=== PATIENT | male | born 1955 | race Caucasian/White ===

== ENCOUNTER 2018-12-06 09:24 | Inpatient (IN) | payer MEDICARE, OTHER ==
[~2018-12-06] VITALS: Ht 177.8 cm; Wt 91.7 kg
[2018-12-06 10:14] LABS: BASO % 0.4 % (0.0-1.0); EOS # 0.2 10^3/uL (0.0-0.50); HEMATOCRIT 43.4 % (42.0-52.0); HEMOGLOBIN 14.7 g/dl (13.5-17.5); LYMPH # 0.9 10^3/uL (1.5-4.5); LYMPH % 18.5 % (24.0-44.0); MEAN CORPUSCULAR HEMOGLOBIN 29.9 pg (27.0-33.0); MEAN CORPUSCULAR HGB CONC 33.9 g/dl (32.0-36.5); MEAN CORPUSCULAR VOLUME 88.2 fl (80.0-96.0); MONO # 0.4 10^3/uL (0.0-0.8); MONO % 8.3 % (0.0-5.0); NEUTROPHILS # 3.2 10^3/uL (1.8-7.7); NEUTROPHILS % 67.4 % (36.0-66.0); PLATELET COUNT, AUTOMATED 189 10^3/uL (150-450); RED BLOOD COUNT 4.92 10^6/uL (4.30-6.10); WHITE BLOOD COUNT 4.8 10^3/uL (4.0-10.0)
[2018-12-06 10:25] LABS: INR 1.03; PROTHROMBIN TIME 13.2 SECONDS (11.8-14.0)
[2018-12-06 10:26] LABS: PARTIAL THROMBOPLASTIN TIME 32.6 SECONDS (25.0-38.4)
--- NOTE | 2018-12-06 10:39 | REP ---
CT BRAIN WITHOUT CONTRAST: CT brain performed without IV contrast. There are no prior studies. There is mild atrophy. There is no midline shift or mass effect. There are minor periventricular small vessel ischemic changes. There is no acute intracranial hemorrhage or extra-axial fluid collection. There is an oval density in the posterior aspect of the right sphenoid sinus 1.8 cm in diameter representing a retention cyst or polyp. IMPRESSION: No acute intracranial hemorrhage. Mild diffuse atrophy. Retention cyst or polyp right sphenoid sinus. Electronically Signed by Arjun Liu MD 12/07/2018 01:00 P
--- NOTE | 2018-12-06 10:45 | REP ---
PORTABLE CHEST X-RAY: Single AP view. HISTORY: CVA. FINDINGS: The lungs are well inflated and clear. The pleural angles are sharp. Cardiomediastinal silhouette is unremarkable. EKG monitoring electrodes are seen. No significant bony abnormality is seen. Pulmonary vasculature is not increased. IMPRESSION: No active disease. Electronically Signed by Brooks Louis MD 12/06/2018 02:03 P
[2018-12-06 11:00] LABS: BLOOD UREA NITROGEN 9 MG/DL (7-18); CALCIUM LEVEL 8.4 MG/DL (8.8-10.2); CARBON DIOXIDE LEVEL 26 MEQ/L (21-32); CHLORIDE LEVEL 107 MEQ/L (98-107); CK-MB VALUE MASS < 1.0 NG/ML (<3.6); CPK CREATINE PHOSPHOKINASE 100 U/L (39-308); CREATININE FOR GFR 1.05 MG/DL (0.70-1.30); GLOMERULAR FILTRATION RATE > 60.0 (>49); GLUCOSE, FASTING 126 MG/DL (70-100); POTASSIUM SERUM 4.2 MEQ/L (3.5-5.1); SODIUM LEVEL 140 MEQ/L (136-145); TROPONIN I < 0.02 NG/ML (< 0.10)
[2018-12-06] MEDS ORDERED: CARV3.12 PO (11:19)
[2018-12-06] MEDS ORDERED: C 50TAB PO (11:19)
[2018-12-06] MEDS ORDERED: FISH1000 PO (11:19)
[2018-12-06] MEDS ORDERED: VITMTA PO (11:19)
[2018-12-06] MEDS ORDERED: ASPI81TA85 PO (11:19)
--- NOTE | 2018-12-06 11:59 | HPEPDOC ---
[facility] Medical History & Physical Date of Admission Dec 06, 2018 Date of Service: Dec 06, 2018 History and Physical CHIEF COMPLAINT: Difficulty concentrating, right facial numbness HISTORY OF PRESENT ILLNESS: 63 yo male with PMHx of thoracic aortic aneurysm, hypertension, dyslipidemia, woke up this morning with complaints of difficulty concentrating, and right facial numbness. Symptoms persisted, with some difficulty performing simple tasks (texting, pouring cereal). In the ER his symptoms continued, however his facial numbness may be improving. Denies any other medical complaints. Denies shortness of breath, chest pain, headaches, changes in vision, abdominal pain, N/V/D. PAST MEDICAL HISTORY: 1. thoracic aortic aneurysm without rupture 2. HTN 3. 1st degree AV block 4. hyperlipidemia 5. DENA 6. obesity REVIEW OF SYSTEMS: Negative except as per HPI. HOME MEDICATIONS: Please see below. PHYSICAL EXAMINATION: VITAL SIGNS: See below GENERAL APPEARANCE: Lying comfortably in bed, NAD HEENT: NC/AT, EOMI, PERRL CARDIOVASCULAR: +S1S2, RRR LUNGS: CTA B/L ABDOMEN: soft, NT, +BS NEUROLOGICAL: sensory deficit right face otherwise sensation intact throughout PSYCHIATRIC: AAOx3 LABORATORY DATA: See below. MICROBIOLOGY: Please see below. ASSESSMENT: 63 yo male for signs/symptoms of CVA #r/o CVA - MRI pending - neuro c/s pending - echo pending - carotid US pending - check lipid profile in am - PT/OT Vital Signs Vital Signs Date Time Temp Pulse Resp B/P (MAP) Pulse Ox O2 Delivery O2 Flow Rate FiO2 12/06/18 10:31 12/06/18 09:25 97.0 53 18 96 Room Air Laboratory Data Labs 24H Laboratory Tests 2 12/06/18 10:00: Immature Granulocyte % (Auto) 0.4, White Blood Count 4.8, Red Blood Count 4.92, Hemoglobin 14.7, Hematocrit 43.4, Mean Corpuscular Volume 88.2, Mean Corpuscular Hemoglobin 29.9, Mean Corpuscular Hemoglobin Concent 33.9, Red Cell Distribution Width 13.0, Platelet Count 189, Neutrophils (%) (Auto) 67.4H, Lymphocytes (%) (Auto) 18.5L, Monocytes (%) (Auto) 8.3H, Eosinophils (%) (Auto) 5.0H, Basophils (%) (Auto) 0.4, Neutrophils # (Auto) 3.2, Lymphocytes # (Auto) 0.9L, Monocytes # (Auto) 0.4, Eosinophils # (Auto) 0.2, Basophils # (Auto) 0.0, Nucleated Red Blood Cells % (auto) 0.0, Prothrombin Time 13.2, Prothromb Time International Ratio 1.03, Activated Partial Thromboplast Time 32.6, Anion Gap 7L, Glomerular Filtration Rate > 60.0, Blood Urea Nitrogen 9, Creatinine 1.05, Sodium Level 140, Potassium Level 4.2, Chloride Level 107, Carbon Dioxide Level 26, Calcium Level 8.4L, Total Creatine Kinase 100, Creatine Kinase MB < 1.0, Creatine Kinase MB Relative Index 1.00, Troponin I < 0.02 12/06/18 10:25: Bedside Glucose (Misc Panel) 120H CBC/BMP Laboratory Tests 12/06/18 10:00 Red Blood Count 4.92, Mean Corpuscular Volume 88.2, Mean Corpuscular Hemoglobin 29.9, Mean Corpuscular Hemoglobin Concent 33.9, Red Cell Distribution Width 13.0, Neutrophils (%) (Auto) 67.4 H, Lymphocytes (%) (Auto) 18.5 L, Monocytes (%) (Auto) 8.3 H, Eosinophils (%) (Auto) 5.0 H, Basophils (%) (Auto) 0.4, Neutrophils # (Auto) 3.2, Lymphocytes # (Auto) 0.9 L, Monocytes # (Auto) 0.4, Eosinophils # (Auto) 0.2, Basophils # (Auto) 0.0, Calcium Level 8.4 L, Total Creatine Kinase 100 Home Medications Scheduled Ascorbic Acid (Vitamin C) 500 Mg Tablet, 500 MG PO DAILY Aspirin (Aspir 81) 81 Mg Tablet.dr, 81 MG PO DAILY Atorvastatin Calcium (Atorvastatin Calcium) 20 Mg Tablet, 80 MG PO QHS Carvedilol (Carvedilol) 3.125 Mg Tablet, 3.125 MG PO BID Clopidogrel Bisulfate (Clopidogrel) 75 Mg Tablet, 75 MG PO DAILY Multivitamins (Thera M Plus Tablet) 1 Each Tablet, 1 TAB PO DAILY [place]-3 Fatty Acids/Fish Oil (Fish Oil 1,000 mg Capsule) 1 Each Capsule, 1,000 MG PO DAILY Allergies Coded Allergies: No Known Allergies (Unverified , 12/06/18) A-FIB/CHADSVASC A-FIB History Current/History of A-Fib/PAF?: No Current PO Anticoag Therapy: No JIMMIE VALENTIN MD Dec 06, 2018 11:59
--- NOTE | 2018-12-06 14:31 | REP ---
MR angiography the brain without contrast: History: Facial sensation loss. Question CVA. Technique: 3-D kory-is-xuelod MR angiography of the brain is acquired in the usual fashion and maximal intensity projection images were generated in rotational format about the vertical and horizontal axes. In addition, source axial T1-weighted images are viewed in cine mode. MR angiographic findings: The distal vertebral arteries are patent and co-dominant. Basilar artery is a little tortuous but widely patent. The posterior cerebral and superior cerebellar vessels are normal and symmetric. There is a persistent origin of the right posterior cerebral artery as a common normal variant. The distal internal carotid arteries are unremarkable. Anterior and middle cerebral arteries appear intact. There is no visible lovelace aneurysm or arteriovenous malformation. Impression: Unremarkable MR angiography the brain. Electronically Signed by Brooks Louis MD 12/06/2018 02:22 P
--- NOTE | 2018-12-06 14:52 | REP ---
MRI BRAIN WITHOUT CONTRAST: HISTORY: Loss of facial sensation. Rule out CVA. Comparison CT study is from this date. TECHNIQUE: Axial and sagittal imaging planes are utilized for T1- and T2-weighted scans. Sequences include spin echo, fast spin echo, FLAIR, and diffusion weighted sequences. MRI FINDINGS: No bony calvarial lesion is seen. Craniocervical junction and upper cervical cord are normal in appearance. There is a mucous retention cyst in the sphenoid sinus. No intraorbital abnormality is seen. There is mild generalized volume loss. Periventricular white matter hyperintensity is seen in the minimal pattern consistent with small vessel atherosclerotic change. There is a tiny 3 mm focus of low T1 high T2 signal intensity in the left cerebral peduncle consistent with an old lacunar infarct. There is no evidence of restricted diffusion here. Diffusion weighted scans however to demonstrate three areas of restricted diffusion on the left involving the left posterior frontal lobe, the left parietal lobe, and the left anterior frontal lobe. The posterior frontal lobe lesion is subcortical. The other two lesions involve the cerebral cortex. The largest is in the left parietal lobe. These are compatible with the areas of acute ischemia. Subtle T2 hyperintensity is visible in the white matter lesion but not yet in the cortical lesions. There is no evidence of intracranial hemorrhage. Diffusion weighted scans are otherwise unremarkable. No mass lesion is seen. IMPRESSION: There are multifocal areas of restricted diffusion in the left cerebral hemisphere in the distribution of the left middle cerebral artery. Three small areas are observed, the largest of which is in the left parietal lobe. These areas are consistent with acute ischemia. There is no evidence of hemorrhage. Electronically Signed by Brooks Louis MD 12/06/2018 05:12 P
--- NOTE | 2018-12-06 15:48 | REP ---
Duplex carotid sonography: History: CVA. Sonographic findings: Antegrade flow is observed in both vertebral arteries. Irregular cardiac rhythm is observed on Doppler tracings. Right carotid: The right common carotid artery is unremarkable on two-dimensional scanning. There is mild mixed plaquing in the bulb and proximal ICA on two-dimensional scanning. Color flow and spectral Doppler interrogation are unremarkable on the right. Velocity chart right carotid: PSV EDV Right CCA 87.0 cm/s Right ICA 78.0 30.0 Right ECA 66.0 Right ICA/CCA ratio normal 0.9. Impression: Less than 50% category narrowing in the right ICA. Left carotid: The left common carotid artery is unremarkable. There is mild mixed plaquing in the bulb and proximal ICA. No high-grade stenosis is seen. Color flow and spectral Doppler interrogation are unremarkable. Velocity chart left carotid: PSV EDV Left CCA 82.0 cm/s Left ICA 70.0 26.0 Left ECA 69.0 Left ICA/CCA ratio normal 0.9. Impression: Less than 50% narrowing in the left internal carotid artery by Doppler velocity criteria. Electronically Signed by Brooks Louis MD 12/06/2018 05:13 P
[2018-12-06 16:00] VITALS: BP 142/76
[2018-12-06] MEDS ORDERED: CLOPIDOGREL 75 MG TAB PO ONE (18:45)
--- NOTE | 2018-12-06 19:25 | ECGEPIP ---
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
[2018-12-06 20:00] VITALS: BP 137/84
[2018-12-06] MEDS: CARVedilol 3.125 MG TAB PO SCH (20:52)
--- NOTE | 2018-12-06 23:37 | CR ---
DATE OF CONSULTATION: 12/06/2018 REFERRING PHYSICIAN: Dr. Garcia Fisher HISTORY OF PRESENT ILLNESS: Flaquiot Erazo is a 63-year-old man who was at his baseline state of health until 7:45 a.m. this morning when he woke up. He went to the kitchen and was making coffee when he felt disoriented. He had trouble texting and typing words on his phone. It was around 8:00 a.m. He bumped into a corner in his kitchen. He spilled his coffee this morning. He felt numbness in his right forehead, right side of this scalp, reaching up to his right ear. He denies any numbness, tingling, weakness of his arms and legs. He felt slightly dizzy and mildly off balance. He never had these symptoms before. He did not feel any trouble with his speech, although had trouble typing and texting. He denies any headaches or neck pain. He has off-and-on chronic back pain. He does home exercises. He follows with Dr. Alvarez for his thoracic aortic aneurysm, which has decreased from 4 cm to 3.7 cm, premature atrial contractions (PACs), premature ventricular contractions (PVCs) and first-degree atrioventricular (AV) block, etc. He has lost 42 pounds weight in the last 3 months by dieting. PAST MEDICAL HISTORY: Thoracic aortic aneurysm 3.7 cm, hypertension, first-degree AV block with PVCs and PACs, dyslipidemia, sleep apnea, obesity. HOME MEDICATIONS: - aspirin 81 mg by mouth daily - carvedilol 3.125 mg by mouth twice a day - multivitamin - [place]-3 fatty acid with fish oil ALLERGIES: None. SOCIAL HISTORY: He denies smoking, alcohol or illicit drugs. FAMILY HISTORY: He denies any family history of stroke. Mother had carotid artery disease. Father had coronary artery disease. REVIEW OF SYSTEMS: All systems were reviewed and found to be noncontributory except as mentioned in the history of present illness. PHYSICAL EXAMINATION: Temperature 98.6, pulse 66, respiratory rate 17, blood pressure 142/76. Heart: Regular rate and rhythm. Lungs: Clear to auscultation. Abdomen: Soft, nontender, nondistended. No pedal edema. No musculoskeletal abnormalities. No rash. No signs of meningeal irritation. No dysmetria. The patient is awake, alert, oriented to place, person and time. Normal speech comprehension and repetition. Recent and distant memory is intact. Extraocular muscles are intact. No facial weakness. Tongue and uvula are midline. No nystagmus. Visual chaidez are full to confrontation. 5/5 strength in all four extremities. Deep tendon flexes are 2+ throughout. He has decreased cold vibration and touch sensation on the right side of his forehead, scalp, up to his right ear. Gait is normal. Romberg testing is negative. DIAGNOSTIC STUDIES: His MRI scan of brain was reviewed and showed small multiple patchy left middle cerebral artery acute ischemic strokes. MRA brain was normal. Carotid ultrasound showed less than 50% bilateral carotid artery stenosis. His CBC and metabolic profile were within normal limits. ASSESSMENT: 1. Multiple small patchy left middle cerebral artery acute ischemic strokes. 2. Less than 50% bilateral carotid artery stenosis. 3 Rule out cardiac source. 4. Rule out atrial fibrillation, coagulopathy and vasculopathy. PLAN: Transesophageal echocardiogram. Blood test to rule out coagulopathy and vasculopathy. Continue telemetry monitoring and will check fasting lipid profile in the morning. Plavix 75 mg by mouth daily and continue aspirin 81 mg by mouth daily. Follow with us in 1-2 weeks after hospital discharge. The patient will closely follow with cardiology. We will continue telemetry monitoring.
--- NOTE | 2018-12-06 23:43 | ECHO ---
DATE OF PROCEDURE: 12/06/2018 REFERRING PHYSICIAN: Dr. Garcia Fisher INDICATION: Acute stroke. HEIGHT: 178 cm WEIGHT: 92.2 kg 2D MEASUREMENTS: Aortic root: 3.7 cm Proximal ascending aorta: 3.7 cm Left atrium: 3.9 cm Aortic annulus: 2.3 cm Ventricular septum: 0.89 cm Posterior wall: 0.90 cm Left ventricle diastole: 5.3 cm Inferior vena cava: 1.6 cm DOPPLER MEASUREMENTS: Aortic valve velocity: 154 cm/s LVOT velocity: 128 cm/s LVOT VTI: 26.9 cm Mitral E velocity: 67.6 cm/s Mitral A velocity: 85.4 cm/s Mitral deceleration time: 239 ms Very mild tricuspid regurgitation. Pulmonary artery systolic pressure: 14 mmHg MITRAL ANNULAR TISSUE DOPPLER: E prime septal: 6.7 cm/s E prime lateral: 12.4 cm/s DESCRIPTION: Rhythm was sinus. Image quality was adequate. No pericardial effusion. This was a 2D, M-mode, color flow Doppler and pulse wave Doppler examination and included mitral annular tissue Doppler. CONCLUSIONS: 1. Moderate aortic valve sclerosis of a 3-cusp aortic valve. No aortic stenosis or regurgitation. 2. Normal left ventricle internal dimensions and wall thickness. Normal regional left ventricular (LV) wall motion and wall thickening. Normal LV systolic function. Left ventricular ejection fraction (LVEF) 70% by visual estimate. Normal LV diastolic function for age. 3. Otherwise normal appearing echocardiogram Doppler findings.
[2018-12-06 23:59] VITALS: BP 135/77
[2018-12-07 04:00] VITALS: BP 114/58
[2018-12-07 05:57] LABS: MEAN CORPUSCULAR HGB CONC 33.3 g/dl (32.0-36.5); MEAN CORPUSCULAR VOLUME 87.1 fl (80.0-96.0); PLATELET COUNT, AUTOMATED 175 10^3/uL (150-450); RED BLOOD COUNT 4.82 10^6/uL (4.30-6.10)
[2018-12-07 06:24] LABS: ALBUMIN 3.3 GM/DL (3.2-5.2); ALT/SGPT 18 U/L (12-78); BILIRUBIN,TOTAL 0.4 MG/DL (0.2-1.0); BLOOD UREA NITROGEN 10 MG/DL (7-18); CALCIUM LEVEL 8.6 MG/DL (8.8-10.2); CARBON DIOXIDE LEVEL 29 MEQ/L (21-32); CHLORIDE LEVEL 109 MEQ/L (98-107); CHOLESTEROL LEVEL 227 MG/DL (<200); CHOLESTEROL RISK RATIO 5.675 (<5); CREATININE FOR GFR 1.03 MG/DL (0.70-1.30); GLOMERULAR FILTRATION RATE > 60.0 (>49); GLUCOSE, FASTING 105 MG/DL (70-100); HDL CHOLESTEROL 40 MG/DL (>40); LDL CHOLESTEROL 167 MG/DL (<100); NON-HDL-C 187 MG/DL; SODIUM LEVEL 143 MEQ/L (136-145); TOTAL PROTEIN 6.2 GM/DL (6.4-8.2); TRIGLYCERIDES LEVEL 100 MG/DL (<150)
[2018-12-07 08:00] VITALS: BP 120/73
[2018-12-07] MEDS: CARVedilol 3.125 MG TAB PO SCH ×2 (08:17→20:32)
[2018-12-07] MEDS: MULTIVITAMINS/MINERALS THERAP 1 TAB PO SCH (08:17)
[2018-12-07] MEDS: ASPIRIN 81 MG ENTERIC TAB PO SCH (08:17)
[2018-12-07] MEDS ORDERED: CLOPIDOGREL 75 MG TAB PO SCH (09:00)
[2018-12-07 12:00] VITALS: BP 132/77
[2018-12-07] MEDS ORDERED: ONDANSETRON 4MG/2ML VIAL (J2405) As Ordered ONE (14:34)
[2018-12-07] MEDS ORDERED: CETACAINE SPRAY 5GM MT ONE (14:34)
[2018-12-07] MEDS ORDERED: fentaNYL 100 MCG/2 ML INJECTION (J3010) As Ordered ONE (14:34)
[2018-12-07] MEDS ORDERED: LIDOCAINE 2% INJ 100 MG/5 ML SDV (FOR ANES.) As Ordered ONE (14:35)
[2018-12-07] MEDS ORDERED: propofoL 200 MG/20 ML VIAL As Ordered ONE ×2 (14:37→15:21)
[2018-12-07] MEDS ORDERED: METOCLOPRAMIDE INJ 10MG/2ML VIAL (J2765) IV PRN (15:45)
[2018-12-07] MEDS ORDERED: oxyCODONE 5MG TAB PO PRN (15:45)
[2018-12-07] MEDS ORDERED: LR 1,000 ML IV SCH (15:45)
[2018-12-07] MEDS ORDERED: fentaNYL 100 MCG/2 ML INJECTION (J3010) IV PRN (15:45)
[2018-12-07 16:00] VITALS: BP 125/92
--- NOTE | 2018-12-07 16:08 | T-ECHO ---
DATE OF PROCEDURE: 12/07/2018 REFERRING PHYSICIAN: Dr. Garcia Fisher INDICATION: Acute stroke. PREPROCEDURE DIAGNOSIS: Acute stroke. POSTPROCEDURE DIAGNOSIS: Acute stroke. PRINCIPAL FINDINGS: No patent foramen ovale. No atrial septal defect. No cardiac source of systemic embolism. Mild aortic valve sclerosis. No intracardiac masses. No thrombus. PROCEDURE PERFORMED: Transesophageal echocardiogram with bubble study. PROCEDURE PERFORMED BY: Jacob Connelly MD VISION IMPAIRED TEACHER: None. ANESTHESIA/IV SEDATION: Propofol, monitored anesthesia care per SECURITY OFFICERS AND GUARDS. COMPLICATIONS: None. PROCEDURE DESCRIPTION: Rhythm was sinus. Patient received propofol per the SECURITY OFFICERS AND GUARDS. Esophageal intubation was very difficult. Ultimately the nurse broiler supervisor involved with the study was able to be use a laryngoscope to guide the transesophageal probe into the esophagus, at which point, I resumed the remainder of the transesophageal echocardiogram. The left and right ventricles appeared normal in size and systolic function and without regional wall motion abnormalities. The atrial septum was intact anatomically and by color flow Doppler. A single bubble study was performed using 8 mL of normal saline, 1 mL of air, and 1 mL of propofol, which was syringed back and forth between two 10 cc syringes and injected by the nurse broiler supervisor. Because of the level of sedation, the patient was not able to perform Valsalva maneuver or follow instructions. No bubbles were seen crossing from the right side of the heart to the left side of the heart. No pericardial effusion. Mitral valve appeared structurally and functionally normal. Trace mitral regurgitation. Pulmonic and tricuspid valves were only moderately visualized but appeared normal. Distal aortic arch and descending thoracic aorta appeared normal. CONCLUSIONS: 1. No patent foramen ovale or atrial septal defect or intracardiac shunting as shown by bubble study. 2. Mild aortic sclerosis with a 3-cusp aortic valve. 3. Normal left and right ventricle systolic function. Left ventricular ejection fraction (LVEF) 65% by visual estimate. 4. No intracardiac masses or vegetations. No intracardiac thrombi.
--- NOTE | 2018-12-07 17:03 | IPNPDOC ---
Text Note Date of Service The patient was seen on 12/07/18. NOTE Subjective: Patient seen and examined at bedside. Symptoms improving. No new medical complaints. PHYSICAL EXAMINATION: VITAL SIGNS: See below GENERAL APPEARANCE: Lying comfortably in bed, NAD HEENT: NC/AT, EOMI, PERRL CARDIOVASCULAR: +S1S2, RRR LUNGS: CTA B/L ABDOMEN: soft, NT, +BS NEUROLOGICAL: improving sensory deficit right face otherwise sensation intact throughout PSYCHIATRIC: AAOx3 LABORATORY DATA: See below. MICROBIOLOGY: Please see below. ASSESSMENT: 63 yo male for multiple ischemic CVA # multiple CVA - LOLY pending - coagulopathy workup pending - neuro c/s appreciated # thoracic aortic aneurysm without rupture # HTN # 1st degree AV block #hyperlipidemia # DENA VS,Fishbone, I+O VS, Fishbone, I+O Laboratory Tests 12/07/18 05:29 Red Blood Count 4.82, Mean Corpuscular Volume 87.1, Mean Corpuscular Hemoglobin 29.0, Mean Corpuscular Hemoglobin Concent 33.3, Red Cell Distribution Width 13.1, Calcium Level 8.6 L, Aspartate Amino Transf (AST/SGOT) 11, Alanine Aminotransferase (ALT/SGPT) 18, Alkaline Phosphatase 62, Total Bilirubin 0.4, Triglycerides Level 100, LDL Cholesterol 167 H, Total Protein 6.2 L, Albumin 3.3 Vital Signs Date Time Temp Pulse Resp B/P (MAP) Pulse Ox O2 Delivery O2 Flow Rate FiO2 12/07/18 16:00 54 16 127/73 (91) 96 12/07/18 15:55 97.5 12/06/18 09:25 Room Air I&O- Last 24 Hours up to 6 AM 12/07/18 06:00 Intake Total 840 ml Output Total 300 ml Balance 540 ml JIMMIE VALENTIN MD Dec 07, 2018 17:03
[2018-12-07 20:00] VITALS: BP 142/81
[2018-12-07] MEDS ORDERED: ATORVASTATIN 20 MG TAB PO SCH (21:00)
[2018-12-07 23:59] VITALS: BP 122/65
[2018-12-08] MEDS ORDERED: ATOR1TAB21 PO (08:14)
[2018-12-08] MEDS ORDERED: CLOP75TA2 PO (08:14)
[2018-12-08 08:30] VITALS: BP 119/75
[2018-12-08] MEDS ORDERED: CLOPIDOGREL 75 MG TAB PO SCH (09:00)
[2018-12-08 09:13] VITALS: BP 119/75
[2018-12-08] MEDS: MULTIVITAMINS/MINERALS THERAP 1 TAB PO SCH (09:13)
[2018-12-08] MEDS: ASPIRIN 81 MG ENTERIC TAB PO SCH (09:13)
[2018-12-08] MEDS: CARVedilol 3.125 MG TAB PO SCH (09:13)
--- NOTE | 2018-12-08 10:55 | DS.PDOC ---
Discharge Summary General Date of Admission Dec 06, 2018 at 11:01 Date of Discharge 12/08/18 Discharge Summary PROCEDURES PERFORMED DURING STAY: [None]. DISCHARGE DIAGNOSES: 1. multiple ischemic cerebrovascular infarcts 2. asymptomatic bradycardia SECONDARY DIAGNOSES: 1. thoracic aortic aneurysm without rupture 2. HTN 3. 1st degree AV block 4. hyperlipidemia 5. DENA COMPLICATIONS/CHIEF COMPLAINT: Cerebral Vascular Accident,Neurological Deficit. HOSPITAL COURSE: Patient admitted for focal neurologic deficits - difficulty with concentrating, and sensory deficits on right face/head. Symptoms slowly improved through hospital stay. MRI revealed multiple ischemic infarcts. TTE/LOLY did not reveal any cardiac source of emboli. Neuro c/s, plavix/statin started. No events on telemetry other than some mild asymptomatic bradycardia. DISCHARGE MEDICATIONS: Please see below. ALLERGIES: Please see below. PHYSICAL EXAMINATION ON DISCHARGE: VITAL SIGNS: Please see below. GENERAL APPEARANCE: Lying comfortably in bed, NAD HEENT: NC/AT, EOMI, PERRL CARDIOVASCULAR: +S1S2, RRR LUNGS: CTA B/L ABDOMEN: soft, NT, +BS NEUROLOGICAL: minimal decreased sensation right face PSYCHIATRIC: AAOx3 LABORATORY DATA: Please see below. ACTIVITY: [As tolerated]. DIET: 2 gram sodium, low fat low cholesterol DISCHARGE PLAN: Discharge home ITEMS TO FOLLOWUP ON ON OUTPATIENT: 1. Follow up cardiology in 3-5 days; possible loop recorder 2. Follow up neurology 1-2 weeks 3. Follow up PCP in 3-5 days DISCHARGE CONDITION: [Stable]. TIME SPENT ON DISCHARGE: 40 minutes. Vital Signs/I&Os Vital Signs Date Time Temp Pulse Resp B/P (MAP) Pulse Ox O2 Delivery O2 Flow Rate FiO2 12/08/18 09:13 63 119/75 12/08/18 08:30 97.4 18 97 12/06/18 09:25 Room Air I&O- Last 24 Hours up to 6 AM 12/08/18 06:00 Intake Total 595 ml Output Total 1300 ml Balance -705 ml Discharge Medications Scheduled Ascorbic Acid (Vitamin C) 500 Mg Tablet, 500 MG PO DAILY, (Reported) Aspirin (Aspir 81) 81 Mg Tablet.dr, 81 MG PO DAILY, (Reported) Atorvastatin Calcium (Atorvastatin Calcium) 20 Mg Tablet, 80 MG PO QHS Carvedilol (Carvedilol) 3.125 Mg Tablet, 3.125 MG PO BID, (Reported) Clopidogrel Bisulfate (Clopidogrel) 75 Mg Tablet, 75 MG PO DAILY Multivitamins (Thera M Plus Tablet) 1 Each Tablet, 1 TAB PO DAILY, (Reported) [place]-3 Fatty Acids/Fish Oil (Fish Oil 1,000 mg Capsule) 1 Each Capsule, 1,000 MG PO DAILY, (Reported) Allergies Coded Allergies: No Known Allergies (Unverified , 12/06/18) JIMMIE VALENTIN MD Dec 08, 2018 10:55
[2018-12-13 14:07] LABS: ANTI DS-DNA AB <1:10 titer (.); ANTI THROMBIN 3 FUNCT ACTIVITY 105 % (75-135); ANTINUCLEAR ANTIBODIES DIRECT Negative (Negative); PROTEIN C FUNCTIONAL ACTIVITY 110 % (73-180); PROTEIN S FUNCTIONAL ACTIVITY 84 % (63-140); SJOGREN'S ANTI SS-A <0.2 AI (0.0-0.9); SJOGREN'S ANTI SS-B <0.2 AI (0.0-0.9)
== END 2018-12-08 10:55 | disposition home or self-care (01) | DRG 66 ==
LOC: M ED 09:24 → M ED INP 11:01 → M PCU 14:32
PROVIDERS: ADMIT Internal Medicine; ATTEND Internal Medicine
PROC: B246YZZ Ultrasonography of Right and Left Heart using Other Contrast (ICD-10-PCS; principal; 2018-12-07 14:00)
DX: I63.9 Cerebral infarction, unspecified (principal); I71.2 Thoracic aortic aneurysm, without rupture; I44.0 Atrioventricular block, first degree; I10 Essential (primary) hypertension; E78.5 Hyperlipidemia, unspecified; G47.33 Obstructive sleep apnea (adult) (pediatric); Z79.82 Long term (current) use of aspirin; Z79.899 Other long term (current) drug therapy; E66.9 Obesity, unspecified

== ENCOUNTER → 2021-02-23 | Outpatient (CLI) | payer MEDICARE, OTHER ==
[~2021-02-23] MED LIST: ASPI81TA86 PO; ATOR1TAB21 PO; C 50TAB PO; CARV3.12 PO; CLOP75TA2 PO; FISH1000 PO; VITMTA PO
[2021-02-23 11:17] LABS: BLOOD UREA NITROGEN 19 MG/DL (7-18); CALCIUM LEVEL 8.8 MG/DL (8.8-10.2); CARBON DIOXIDE LEVEL 29 MEQ/L (21-32); CHLORIDE LEVEL 107 MEQ/L (98-107); CHOLESTEROL LEVEL 244 MG/DL (<200); CHOLESTEROL RISK RATIO 4.784 (<5); CREATININE FOR GFR 0.99 MG/DL (0.70-1.30); GLOMERULAR FILTRATION RATE > 60.0 (>49); GLUCOSE, FASTING 125 MG/DL (70-100); HDL CHOLESTEROL 51 MG/DL (>40); LDL CHOLESTEROL 169 MG/DL (<100); NON-HDL-C 193 MG/DL; POTASSIUM SERUM 4.6 MEQ/L (3.5-5.1); SODIUM LEVEL 138 MEQ/L (136-145); TRIGLYCERIDES LEVEL 121 MG/DL (<150)
== END ==
LOC: M LAB 09:39
PROVIDERS: ATTEND Physician Assistant
DX: E78.00 Pure hypercholesterolemia, unspecified (principal)

== ENCOUNTER → 2025-03-24 | Outpatient (CLI) | payer MEDICARE, OTHER | LOC: M WUC 09:36 | PROVIDERS: ATTEND Physician Assistant | DX: M25.562 Pain in left knee (principal) ==

== ENCOUNTER → 2025-05-01 | Outpatient (CLI) | payer OTHER, MEDICARE | LOC: M EKG 09:57 | PROVIDERS: ATTEND Nurse Practitioner Family | DX: Z86.73 Personal history of transient ischemic attack (TIA), and cerebral infarction without residual deficits (principal); Z53.9 Procedure and treatment not carried out, unspecified reason ==

== ENCOUNTER → 2025-05-02 | Outpatient (CLI) | payer MEDICARE, OTHER ==
[2025-05-02 12:49] LABS: BASO # 0.0 10^3/uL (0.0-0.2); BASO % 0.6 % (0.0-1.0); EOS # 0.1 10^3/uL (0.0-0.5); EOS % 1.8 % (0.0-3.0); LYMPH # 1.1 10^3/uL (1.5-5.0); LYMPH % 16.7 % (24.0-44.0); MONO # 0.5 10^3/uL (0.0-0.8); MONO % 8.0 % (2.0-8.0); NEUTROPHILS # 4.8 10^3/uL (1.5-8.5); NEUTROPHILS % 72.6 % (36.0-66.0); PLATELET COUNT, AUTOMATED 233 10^3/uL (150-450)
[2025-05-02 13:24] LABS: CALCIUM LEVEL 9.0 MG/DL (8.3-10.6); CARBON DIOXIDE LEVEL 28 MMOL/L (20-31); CHLORIDE LEVEL 104 MMOL/L (98-107); CHOLESTEROL LEVEL 218 MG/DL (<200); CHOLESTEROL RISK RATIO 4.05 (<5); CREATININE FOR GFR 0.88 MG/DL (0.70-1.30); GLOMERULAR FILTRATION RATE > 90.0 (>42); LDL CHOLESTEROL 136.9 MG/DL (<100); MAGNESIUM LEVEL 2.3 MG/DL (1.8-2.4); NON-HDL-C 164.3 MG/DL; POTASSIUM SERUM 4.5 MMOL/L (3.5-5.1); SODIUM LEVEL 142 MMOL/L (136-145); TRIGLYCERIDES LEVEL 137 MG/DL (<150)
[2025-05-02 13:25] LABS: FREE T4 1.35 NG/DL (0.89-1.76)
== END ==
LOC: M LAB 11:39
PROVIDERS: ATTEND Nurse Practitioner Family
DX: I10 Essential (primary) hypertension (principal); E78.00 Pure hypercholesterolemia, unspecified; R06.02 Shortness of breath; R60.9 Edema, unspecified